=== PATIENT | male | born 1980 | race Caucasian/White ===

== ENCOUNTER 2018-04-15 15:49 | Emergency (ER) | payer OTHER ==
[~2018-04-15] VITALS: Ht 182.9 cm; Wt 90.7 kg
[~2018-04-15 15:49] MED LIST: NO HOME MEDS
[2018-04-15] MEDS ORDERED: MUSCLE RELAXER (15:58)
[2018-04-15] MEDS ORDERED: ANTI INFLAMMATORY (15:59)
[2018-04-15 16:33] LABS: URINE BILIRUBIN NEGATIVE (Negative); URINE BLOOD NEGATIVE (Negative); URINE CLARITY CLEAR; URINE COLOR YELLOW; URINE GLUCOSE-RANDOM NEGATIVE (Negative); URINE KETONES NEGATIVE (Negative); URINE LEUKOCYTES-REFLEX NEGATIVE (Negative); URINE NITRITE-REFLEX NEGATIVE (Negative); URINE PROTEIN NEGATIVE (Negative); URINE UROBILINOGEN 0.2 E.U./dl (0.2-1.0)
[2018-04-15 16:36] LABS: BE 0 mmol/L (-2 to +3); HCO3 24.2 mmol/L (22.0-26.0); PO2 115.9 mmHg (75.0-100.0); pH 7.422 (7.340-7.450)
[2018-04-15 16:42] LABS: AMP/METHAMP Negative (Negative); BARBITURATES Negative (Negative); BENZODIAZEPINES Negative (Negative); COCAINE Negative (Negative); METHADONE Negative (Negative); OPIATES Negative (Negative); PCP Negative (Negative); THC Negative (Negative)
[2018-04-15 16:47] LABS: ABSOLUTE BASOPHILS 0.1 thou/uL (0.0-0.2); ABSOLUTE EOSINOPHILS 0.1 thou/uL (0.0-0.7); ABSOLUTE LYMPHOCYTES 1.4 thou/uL (0.8-5.3); ABSOLUTE MONOCYTES 0.6 thou/uL (0.0-1.2); ABSOLUTE NEUTROPHILS 10.7 thou/uL (1.6-8.1); BASOPHILS 0.8 %; EOSINOPHILS 1.1 %; HEMATOCRIT 43.8 % (42.0-52.0); HEMOGLOBIN 14.4 gm/dL (14.0-18.0); MCHC 32.9 g/dL (28.0-37.0); MCV 85.1 fL (80.0-100.0); MONOCYTES 4.7 %; MPV 8.2 fl. (7.2-11.1); NUCLEATED RBCS 0 /100WBC; PLATELET COUNT* 355 thou/uL (150-400); POLYS 82.4 %; RBC 5.15 mil/uL (4.50-6.00); RDW-CV 13.1 % (10.5-14.5)
[2018-04-15 16:54] LABS: ANION GAP 11 mmol/L (7-16); BUN 15 mg/dL (7-18); CALCIUM 9.4 mg/dL (8.5-10.1); CHLORIDE 100 mmol/L (98-107); CO2 29 mmol/L (21-32); CREATININE 0.9 mg/dL (0.6-1.3); GLUCOSE 101 mg/dL (70-99); POTASSIUM 3.8 mmol/L (3.5-5.1); SODIUM 140 mmol/L (136-145)
[2018-04-15 16:57] LABS: APTT 26.4 Seconds (25.0-31.3); PROTIME 10.4 Seconds (9.20-11.50)
[2018-04-15 17:05] LABS: ALBUMIN 4.8 g/dL (3.4-5.0); ALKALINE PHOSPHATASE 61 U/L (46-116); NT-PRO BRAIN NAT PEPTIDE 22 pg/mL (<300); SGOT 21 U/L (15-37); SGPT 42 U/L (30-65); TOTAL BILIRUBIN 0.6 mg/dL (<0.1-1.0); TOTAL PROTEIN 8.3 g/dL (6.4-8.2); TROPONIN-I LEVEL <0.06 ng/mL (<0.06)
[2018-04-15 18:43] LABS: BE 0.7 mmol/L (-2 to +3); HCO3 25.3 mmol/L (22.0-26.0); PCO2 40.7 mmHg (35.0-45.0); PO2 464.8 mmHg (75.0-100.0); pH 7.412 (7.340-7.450)
[2018-04-15 19:51] VITALS: BP 111/64
--- NOTE | 2018-04-16 17:45 | EKG ---
[place] [address] ELECTROCARDIOGRAM REPORT Name: BEV BAUTISTA Room: [facility]#: [id number] Admission: 04/15/18 Attend Phys: Discharge: 04/15/18 Date of : 78 Report #: [id number] THIS REPORT FOR: //name// [facility] ED Test Date: 2018-04-15 Test Time: 16:24:34 Pat Name: BEV BAUTISTA Department: Room: Gender: M [employer]: MARTIN : 1980 Requested By: Dean Mares Order Number: [id number] MD: Ger Ordaz Measurements Intervals [place] Rate: 76 P: -16 TN: 158 QRS: 63 QRSD: 90 T: 29 QT: 381 QTc: 429 Interpretive Statements Sinus rhythm No previous ECG available for comparison Electronically Signed On 04-16-2018 17:44:52 ONLINE ADVERTISING ANALYST by Ger Ordaz [email or web address] <ELECTRONICALLY SIGNED> By: Ger Ordaz MD, [facility] 04/16/18 1744 1624 1624 Ger Ordaz MD, FACC /EPI
== END 2018-04-15 19:52 | disposition home or self-care (01) ==
LOC: M.ERS 15:49
PROVIDERS: Nurse Practitioner Family
DX: T52.0X1A Toxic effect of petroleum products, accidental (unintentional), initial encounter (principal); R42 Dizziness and giddiness; Z90.49 Acquired absence of other specified parts of digestive tract; Y92.89 Other specified places as the place of occurrence of the external cause